=== PATIENT | female | born 1990 | race Caucasian/White ===

== ENCOUNTER 2018-05-12 03:18 | Inpatient (IN) ==
[2018-05-12] MEDS ORDERED: Sod Chloride 0.9% Inj 1,000 ML IV.SIG ONE (03:24)
--- NOTE | 2018-05-12 03:29 | ED ---
HPI General Chief complaint: Medical Clearance Stated complaint: vomiting/diabetic Time Seen by Provider: 05/12/18 03:24 Source: patient Mode of arrival: ambulatory Limitations: no limitations History of Present Illness HPI Narrative: 27-year-old female patient with type 1 diabetes with an insulin pump, gastroparesis, presents to the ER today for nausea and vomiting that started tonight. She is retching in the ER. She denies any fevers, diarrhea, or other issues. She states that it feels like her previous episodes of gastroparesis. She also thought that her blood sugars may have been elevated. Related Data Allergies Allergy/AdvReac Type Severity Reaction Status Date / Time No Known Allergies Allergy Verified 05/12/18 03:19 Review of Systems ROS: all other systems reviewed are negative PMFSH History History Provided By: Patient Medical History Medical History Diabetes (Acute) Gastroparesis (Acute) Social History Social History Substance History: Active Abuse Second Hand Smoke Exposure: Yes Smoking Status: Current every day smoker Tobacco Type: Cigarettes How Often Do You Have a Drink Containing Alcohol: Never Recent Travel in [facility] within the Last 8 Weeks: No Recent Out of Country Travel within the Last 8 Weeks: No Exam Narrative Exam Narrative: GENERAL: Well-developed young female patient currently in moderate distress. Awake and oriented x3. SKIN: Focused skin assessment warm/dry. HEAD: Atraumatic. Normocephalic. EYES: Pupils equal and round. No scleral icterus. No injection or drainage. ENT: No nasal bleeding or discharge. Mucous membranes pink and moist. NECK: Trachea midline. No JVD. CARDIOVASCULAR: Regular rate and rhythm. No murmur appreciated. RESPIRATORY: No accessory muscle use. Clear to auscultation. Breath sounds equal bilaterally. GASTROINTESTINAL: Abdomen soft, epigastric tenderness without guarding rebound, nondistended. Hepatic and splenic margins not palpable. MUSCULOSKELETAL: No obvious deformities. No clubbing. No cyanosis. No edema. NEUROLOGICAL: Awake and alert. No obvious cranial nerve deficits. Motor grossly within normal limits. Normal speech. PSYCHIATRIC: Appropriate mood and affect; insight and judgment normal. Course Initial Documented Vital Signs Temperature 97.9 F 05/12/18 03:23 Pulse Rate 117 H 05/12/18 03:23 Respiratory Rate 22 05/12/18 03:23 Blood Pressure 147/104 H 10/26/18 03:23 Pulse Oximetry 100 05/12/18 03:23 Last Documented Vital Signs Temperature 97.9 F 05/12/18 03:23 Pulse Rate 102 H 05/12/18 03:49 Respiratory Rate 20 05/12/18 03:49 Blood Pressure 149/99 H 05/12/18 03:49 Pulse Oximetry 96 05/12/18 03:49 Medical Decision Making MDM Narrative Medical decision making narrative: Lab work shows very elevated glucose levels and ketones are elevated as well. There is suspicion of a DKA. IV fluids, insulin was ordered for the patient. And at this point, case was discussed with Dr. Buck of critical care medicine for admission for further treatment. Aggregate critical care time was 35 minutes. Time to perform other separately billable procedures was not included in the critical care time. My time did not include minutes spent treating any other patients simultaneously or on activities that did not directly contribute to the patient's treatment. The services I provided to this patient were to treat and/or prevent clinically significant deterioration that could result in: Worsening DKA, dehydration, electrolyte abnormalities, dysrhythmias, I provided critical care services requiring my management, as noted below: Chart data review, documentation time, medication orders and management, vital sign assessments/reviewing monitor data, ordering and reviewing lab tests, ordering and interpreting/reviewing x-rays and diagnostic studies, care of the patient and discussion of the patient with the admitting physicians. Medical Screen Exam Complete: Yes Emergency Medical Condition: Yes Differential Diagnosis Differential Diagnosis: Gastroparesis versus gastroenteritis versus obstruction versus dehydration versus electrolyte abnormalities versus DKA Lab Data Lab results reviewed: Yes I reviewed the patient's lab results. Result diagrams: 05/12/18 03:35 05/12/18 03:35 POC Results POC Urine Results Negative Lab Results 05/12/18 05/12/18 05/12/18 Range/Units 03:24 03:35 03:35 WBC 15.1 H (4.0-11.0) th/mm3 RBC 4.30 (4.00-5.30) mil/mm3 Hgb 12.7 (11.6-15.3) gm/dL Hct 39.1 (35.0-46.0) % MCV 90.9 (80.0-100.0) fL MCH 29.6 (27.0-34.0) pg MCHC 32.6 (32.0-36.0) % RDW 12.9 (11.6-17.2) % Plt Count 365 (150-450) th/mm3 MPV 8.6 (7.0-11.0) fL Neut % (Auto) 83.5 H (16.0-70.0) % Lymph % (Auto) 11.4 (9.0-44.0) % Fa[place]ner % (Auto) 3.6 (0.0-8.0) % Eos % (Auto) 0.8 (0.0-4.0) % Baso % (Auto) 0.7 (0.0-2.0) % Neut # (Auto) 12.6 H (1.8-7.7) th/mm3 Lymph # (Auto) 1.7 (1.0-4.8) th/mm3 Fa[place]ner # (Auto) 0.5 (0.0-0.9) th/mm3 Eos # (Auto) 0.1 (0.0-0.4) th/mm3 Baso # (Auto) 0.1 (0.0-0.2) th/mm3 WBC Differential . Differential Comment Auto diff final Sodium 131 L (136-145) meq/L Potassium 4.3 (3.5-5.1) meq/L Chloride 91 L (98-107) meq/L Carbon Dioxide 19.8 L (21.0-32.0) meq/L Anion Gap 20 H (5-15) meq/L BUN 35 H (7-18) mg/dL Creatinine 1.22 H (0.50-1.00) mg/dL Estimated GFR 52 L (>89) mL/min POC Glucose Greater than 600 H* (68-110) mg/dl Random Glucose 785 H* (74-106) mg/dL Calcium 10.2 H (8.5-10.1) mg/dL Magnesium 2.4 (1.5-2.5) mg/dL Total Bilirubin 0.6 (0.2-1.0) mg/dL AST 35 (15-37) U/L ALT 62 H (10-53) U/L Alkaline Phosphatase 169 H (45-117) U/L Total Protein 8.6 H (6.4-8.2) g/dL Albumin 4.2 (3.4-5.0) g/dL Lipase 352 (73-393) U/L Beta-Hydroxybutyric Acd (0.00-0.39) mmol/L Urine Color (Yellw/Straw) Urine Clarity (Clear) Urine pH (5.0-8.5) Ur Specific [place] (1.002-1.035) Urine Protein (Neg-Trace) mg/dL Urine Glucose (UA) (Negative) mg/dL Urine Ketones (Negative) mg/dL Urine Occult Blood (Negative) Urine Nitrate (Negative) Urine Bilirubin (Negative) Urine Urobilinogen (Less than 2) mg/dL Ur Leukocyte Esterase (Negative) Urine RBC (0-3) /hpf Urine WBC (0-5) /hpf Ur Squamous Epith Cells (0-5) /hpf Micro UA Comment Ur Microscopic Review Urine Culture Comments 05/12/18 05/12/18 Range/Units 03:35 04:26 WBC (4.0-11.0) th/mm3 RBC (4.00-5.30) mil/mm3 Hgb (11.6-15.3) gm/dL Hct (35.0-46.0) % MCV (80.0-100.0) fL MCH (27.0-34.0) pg MCHC (32.0-36.0) % RDW (11.6-17.2) % Plt Count (150-450) th/mm3 MPV (7.0-11.0) fL Neut % (Auto) (16.0-70.0) % Lymph % (Auto) (9.0-44.0) % Faulkner % (Auto) (0.0-8.0) % Eos % (Auto) (0.0-4.0) % Baso % (Auto) (0.0-2.0) % Neut # (Auto) (1.8-7.7) th/mm3 Lymph # (Auto) (1.0-4.8) th/mm3 [place]ner # (Auto) (0.0-0.9) th/mm3 Eos # (Auto) (0.0-0.4) th/mm3 Baso # (Auto) (0.0-0.2) th/mm3 WBC Differential Differential Comment Sodium (136-145) meq/L Potassium (3.5-5.1) meq/L Chloride (98-107) meq/L Carbon Dioxide (21.0-32.0) meq/L Anion Gap (5-15) meq/L BUN (7-18) mg/dL Creatinine (0.50-1.00) mg/dL Estimated GFR (>89) mL/min POC Glucose (68-110) mg/dl Random Glucose (74-106) mg/dL Calcium (8.5-10.1) mg/dL Magnesium (1.5-2.5) mg/dL Total Bilirubin (0.2-1.0) mg/dL AST (15-37) U/L ALT (10-53) U/L Alkaline Phosphatase (45-117) U/L Total Protein (6.4-8.2) g/dL Albumin (3.4-5.0) g/dL Lipase (73-393) U/L Beta-Hydroxybutyric Acd 6.32 H (0.00-0.39) mmol/L Urine Color Straw (Yellw/Straw) Urine Clarity Clear (Clear) Urine pH 5.0 (5.0-8.5) Ur Specific [place] 1.025 (1.002-1.035) Urine Protein 30 H (Neg-Trace) mg/dL Urine Glucose (UA) 500 or greater (Negative) mg/dL Urine Ketones 80 or greater H (Negative) mg/dL Urine Occult Blood Moderate H (Negative) Urine Nitrate Negative (Negative) Urine Bilirubin Negative (Negative) Urine Urobilinogen Less than 2 (Less than 2) mg/dL Ur Leukocyte Esterase Negative (Negative) Urine RBC 4 H (0-3) /hpf Urine WBC 1 (0-5) /hpf Ur Squamous Epith Cells <1 (0-5) /hpf Micro UA Comment Culture not ind Ur Microscopic Review Not Reportable Urine Culture Comments Culture not ind Discharge Plan Discharge Disposition Patient Disposition: 30 Still Patient Discharge Condition Condition: Critical Discharge Details Anticipated Discharge Date: 05/12/18 Diagnosis: DKA, type 1 Physicians Team ED Provider: Josefa Solis Interventions Interventions: Vital Signs Last Done: 05/12/18 03:49 Status ED Status: With Doctor
[2018-05-12] MEDS ORDERED: Sod Chloride 0.9% Inj 1,000 ML IV.SIG SCH ×2 (03:45→05:45)
[2018-05-12 03:50] LABS: Baso # (Auto) 0.1 th/mm3 (0.0-0.2); Baso % (Auto) 0.7 % (0.0-2.0); Eos # (Auto) 0.1 th/mm3 (0.0-0.4); Eos % (Auto) 0.8 % (0.0-4.0); Hematocrit 39.1 % (35.0-46.0); Hemoglobin 12.7 gm/dL (11.6-15.3); Lymph # (Auto) 1.7 th/mm3 (1.0-4.8); Lymph % (Auto) 11.4 % (9.0-44.0); Mean Corpuscular HGB Conc 32.6 % (32.0-36.0); Mean Corpuscular Hemoglobin 29.6 pg (27.0-34.0); Mean Corpuscular Volume 90.9 fL (80.0-100.0); Mean Platelet Volume 8.6 fL (7.0-11.0); Mono # (Auto) 0.5 th/mm3 (0.0-0.9); Mono % (Auto) 3.6 % (0.0-8.0); Neut # (Auto) 12.6 th/mm3 (1.8-7.7); Neut % (Auto) 83.5 % (16.0-70.0); Platelet Count 365 th/mm3 (150-450); Red Cell Distribution Width 12.9 % (11.6-17.2); White Blood Count 15.1 th/mm3 (4.0-11.0)
[2018-05-12 04:16] LABS: Alanine Aminotransferase 62 U/L (10-53); Albumin 4.2 g/dL (3.4-5.0); Anion Gap 20 meq/L (5-15); Aspartate Aminotransferase 35 U/L (15-37); Blood Urea Nitrogen 35 mg/dL (7-18); Calcium 10.2 mg/dL (8.5-10.1); Carbon Dioxide 19.8 meq/L (21.0-32.0); Chloride 91 meq/L (98-107); Glomerular Filtration Rate 52 mL/min (>89); Lipase 352 U/L (73-393); Magnesium 2.4 mg/dL (1.5-2.5); Potassium 4.3 meq/L (3.5-5.1); Sodium 131 meq/L (136-145)
[2018-05-12 04:20] LABS: Total Protein 8.6 g/dL (6.4-8.2)
[2018-05-12 04:21] LABS: Alkaline Phosphatase 169 U/L (45-117)
[2018-05-12 04:26] LABS: Glucose,Random 785 mg/dL (74-106)
[2018-05-12] MEDS ORDERED: Potassium Chlor 20 mEq Premix 20 MEQ/100 ML PIGGYBACK IV.SIG PRN ×3 (04:32)
[2018-05-12] MEDS ORDERED: Potassium Chlor 40 mEq Premix 40 MEQ/100 ML PIGGYBACK IV.SIG PRN ×2 (04:32)
[2018-05-12] MEDS ORDERED: Sodium Phosphate Inj 15 MMOL in Sodium Chlor 0.9% Inj 100 ML IV.SIG PRN (04:32)
[2018-05-12 04:42] LABS: Bilirubin,Urine Negative (Negative); Clarity,Urine Clear (Clear); Color,Urine Straw (Yellw/Straw); Glucose,Urine (UA) 500 or Greater mg/dL (Negative); Leukocyte Esterase,Urine Negative (Negative); Nitrite,Urine Negative (Negative); Specific Gravity,Urine 1.025 (1.002-1.035); Squamous Epithelial Cell,Urine <1 /hpf (0-5)
--- NOTE | 2018-05-12 04:54 | CT ---
EXAM DATE: 05/12/2018 4:45 AM EDT AGE/SEX: 27 years / Female INDICATIONS: Abdominal pain and vomiting. CLINICAL DATA: This is the patient's initial encounter. Patient reports that signs and symptoms have been present for 1 day and indicates a pain score of 10/10. MEDICAL/SURGICAL HISTORY: Diabetes. Gastroparesis. None. ORAL CONTRAST: No oral contrast ingested. RADIATION DOSE: 6.64 CTDI (mGy) COMPARISON: No prior exams available for comparison. TECHNIQUE: Multiple contiguous axial images were obtained through the abdomen and pelvis following b olus infusion of 75 ml Omnipaque 350 (iohexol) nonionic water-soluble contrast as a single exam dos e. No oral contrast ingested. Using automated exposure control and adjustment of the mA and/or kV ac cording to patient size, radiation dose was kept as low as reasonably achievable to obtain optimal di agnostic quality images. DICOM format image data is available electronically for review and comparis on. FINDINGS: Lower Lungs: The visualized lower lungs are clear. Liver: The liver has a homogeneous density without space-occupying lesion. There is no dilation of th e biliary tree. No calcified gallstones. Spleen: Homogeneous density without enlargement. Pancreas: Unremarkable without mass or calcification. Kidneys: Normal in size and shape. No evidence of mass or hydronephrosis. Adrenal Glands: Unremarkable. Aorta: The aorta and proximal iliac vessels are grossly unremarkable without aneurysmal dilation. Bowel/Mesentery: No dilated loops of small or large bowel. A mild amount of free fluid in the depend ent pelvis. Abdominal Wall: Intact. Retroperitoneum: No evidence of adenopathy in the retrocrural, para-aortic, or deep pelvic regions. Bladder: Contours are smooth. Reproductive Organs: No abnormal masses or calcifications seen. Inguinal: The inguinal region is unremarkable without evidence of adenopathy. Bony Structures: 3 screws in the left femoral head and neck. Old fracture of the left inferior pubic ramus with nonbony fusion. CONCLUSION: 1. No dilated loops of small or large bowel. 2. Mild amount of free fluid in the dependent pelvis. Electronically signed by: Joe Wu MD 05/12/2018 4:52 AM EDT
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
[2018-05-12] MEDS: Insulin Regular (For Infusion) 100 UNIT in Sodium Chlor 0.9% Inj 99 ML IV.CONT PRN ×2 (05:29→21:58)
[2018-05-12] MEDS: Sod Chloride 0.9% Inj 1,000 ML IV.CONT SCH ×2 (05:29→09:41)
[2018-05-12] MEDS: Dextrose 5%/NaCl 0.9% Inj 1,000 ML IV.CONT SCH ×4 (06:00→21:56)
[2018-05-12] MEDS: Heparin - SQ 10,000 UNITS/ML Vial SQ SCH ×2 (08:12→20:34)
[2018-05-12 10:57] LABS: Calcium 8.8 mg/dL (8.5-10.1); Carbon Dioxide 19.9 meq/L (21.0-32.0)
[2018-05-12] MEDS ORDERED: Morphine Sulfate Inj 2 MG/ML Vial ONE (13:17)
[2018-05-12] MEDS ORDERED: MORPHINE SULFATE IV.PUSH ONE (13:30)
[2018-05-12] MEDS: Potassium Chlor 20 mEq Premix 20 MEQ/100 ML PIGGYBACK IV.SIG PRN ×3 (13:40→23:11)
[2018-05-12 16:27] LABS: Calcium 8.3 mg/dL (8.5-10.1); Carbon Dioxide 24.8 meq/L (21.0-32.0); Phosphorus 1.7 mg/dL (2.5-4.9); Potassium 3.9 meq/L (3.5-5.1)
--- NOTE | 2018-05-12 17:46 | P.CONGI ---
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 Urine pH Ur Specific [place] Urine Protein Urine Glucose (UA) Urine Ketones Urine Occult Blood Urine Nitrate Urine Bilirubin Urine Urobilinogen Ur Leukocyte Esterase Urine RBC Urine WBC Ur Squamous Epith Cells Micro UA Comment Ur Microscopic Review Urine Culture Comments Nasal Screen MRSA (PCR) 05/12/18 05/12/18 05/12/18 10:05 10:11 11:05 WBC RBC Hgb Hct MCV MCH MCHC RDW Plt Count MPV Neut % (Auto) Lymph % (Auto) [place] % (Auto) Eos % (Auto) Baso % (Auto) Neut # (Auto) Lymph # (Auto) [place] # (Auto) Eos # (Auto) Baso # (Auto) WBC Differential Differential Comment Sodium 144 D Potassium 4.0 Chloride 112 H D Carbon Dioxide 19.9 L Anion Gap 12 BUN 27 H Creatinine 0.96 Estimated GFR 69 L POC Glucose 204 H 150 H Random Glucose 205 H D Calcium 8.8 D Phosphorus Magnesium Total Bilirubin AST ALT Alkaline Phosphatase Total Protein Albumin Lipase Beta-Hydroxybutyric Acd Urine Color Urine Clarity Urine pH Ur Specific [place] Urine Protein Urine Glucose (UA) Urine Ketones Urine Occult Blood Urine Nitrate Urine Bilirubin Urine Urobilinogen Ur Leukocyte Esterase Urine RBC Urine WBC Ur Squamous Epith Cells Micro UA Comment Ur Microscopic Review Urine Culture Comments Nasal Screen MRSA (PCR) 05/12/18 05/12/18 05/12/18 11:33 12:32 13:26 WBC RBC Hgb Hct MCV MCH MCHC RDW Plt Count MPV Neut % (Auto) Lymph % (Auto) [place] % (Auto) Eos % (Auto) Baso % (Auto) Neut # (Auto) Lymph # (Auto) [place] # (Auto) Eos # (Auto) Baso # (Auto) WBC Differential Differential Comment Sodium Potassium Chloride Carbon Dioxide Anion Gap BUN Creatinine Estimated GFR POC Glucose 164 H 252 H 249 H Random Glucose Calcium Phosphorus Magnesium Total Bilirubin AST ALT Alkaline Phosphatase Total Protein Albumin Lipase Beta-Hydroxybutyric Acd Urine Color Urine Clarity Urine pH Ur Specific [place] Urine Protein Urine Glucose (UA) Urine Ketones Urine Occult Blood Urine Nitrate Urine Bilirubin Urine Urobilinogen Ur Leukocyte Esterase Urine RBC Urine WBC Ur Squamous Epith Cells Micro UA Comment Ur Microscopic Review Urine Culture Comments Nasal Screen MRSA (PCR) 10/26/18 10/26/18 10/26/18 14:27 15:44 15:45 WBC RBC Hgb Hct MCV MCH MCHC RDW Plt Count MPV Neut % (Auto) Lymph % (Auto) [place] % (Auto) Eos % (Auto) Baso % (Auto) Neut # (Auto) Lymph # (Auto) [place] # (Auto) Eos # (Auto) Baso # (Auto) WBC Differential Differential Comment Sodium 146 H Potassium 3.9 Chloride 113 H Carbon Dioxide 24.8 Anion Gap 8 BUN 27 H Creatinine 0.84 Estimated GFR 81 L POC Glucose 249 H 215 H Random Glucose 236 H Calcium 8.3 L Phosphorus 1.7 L D Magnesium Total Bilirubin AST ALT Alkaline Phosphatase Total Protein Albumin Lipase Beta-Hydroxybutyric Acd Urine Color Urine Clarity Urine pH Ur Specific [place] Urine Protein Urine Glucose (UA) Urine Ketones Urine Occult Blood Urine Nitrate Urine Bilirubin Urine Urobilinogen Ur Leukocyte Esterase Urine RBC Urine WBC Ur Squamous Epith Cells Micro UA Comment Ur Microscopic Review Urine Culture Comments Nasal Screen MRSA (PCR) 05/12/18 05/12/18 05/12/18 16:47 18:09 18:43 WBC RBC Hgb Hct MCV MCH MCHC RDW Plt Count MPV Neut % (Auto) Lymph % (Auto) [place] % (Auto) Eos % (Auto) Baso % (Auto) Neut # (Auto) Lymph # (Auto) [place] # (Auto) Eos # (Auto) Baso # (Auto) WBC Differential Differential Comment Sodium Potassium Chloride Carbon Dioxide Anion Gap BUN Creatinine Estimated GFR POC Glucose 193 H 207 H 203 H Random Glucose Calcium Phosphorus Magnesium Total Bilirubin AST ALT Alkaline Phosphatase Total Protein Albumin Lipase Beta-Hydroxybutyric Acd Urine Color Urine Clarity Urine pH Ur Specific [place] Urine Protein Urine Glucose (UA) Urine Ketones Urine Occult Blood Urine Nitrate Urine Bilirubin Urine Urobilinogen Ur Leukocyte Esterase Urine RBC Urine WBC Ur Squamous Epith Cells Micro UA Comment Ur Microscopic Review Urine Culture Comments Nasal Screen MRSA (PCR) - Imaging Impressions Abdomen/Pelvis CT 05/12/18 03:54 CONCLUSION: 1. No dilated loops of small or large bowel. 2. Mild amount of free fluid in the dependent pelvis. <Pankaj Fletcher E - Last Filed: 05/12/18 19:13> Assessment and Plan (1) Nausea and vomiting due to hyperglycemia Status: Acute Code(s): R11.2 - Nausea with vomiting, unspecified; R73.9 - Hyperglycemia, unspecified (2) Gastroparesis Status: Acute Code(s): K31.84 - Gastroparesis - Plan This patient is a 27-year-old female with past medical history significant for type 1 diabetes. Patient currently has an insulin pump and has history of gastroparesis. She reports onset of severe nausea and vomiting at midnight last night. At home she checked her blood glucose level and found it to be high , at that time she proceeded to [facility] emergency room. Patient was found to be in DKA with a glucose of 785. She reports having abdominal cramping and pain. Denies any diarrhea or constipation states bowel movements are regular soft brown stools daily. Reports nausea nausea and vomiting consisting of clear emesis. Patient denies any fever or chills. Patient states that she has had a history of gastroparesis for about 6 years. Patient denies being on any prokinetics and states that gastroparesis has been controlled for the last 2 years without prescription medications. Last gastric emptying study was done "years ago". Last EGD per patient recollection was done and estimated 2 years ago in [place]-where patient lives. Patient denies ever having had a colonoscopy. She denies tobacco use or use of alcohol products. Nausea vomiting-likely due to to DKA Patient reporting nausea and vomiting onset midnight. Patient reports emesis clear. Patient found to be in DKA with glucose of 785 on arrival to ER. Zofran 4 mg IV every 6 hours as needed nausea. CT abdomen and pelvis unremarkable without noted dilated loops of bowel. Gastroparesis-likely due to diabetes mellitus Patient reporting history of gastroparesis for 6 years. States controlled over the last 2 years and denies being on any prescription medications for same. Reglan 5 mg IV every 8 hours. May need additional gastric emptying study at some point. Plan -Clear liquid diet -Reglan IV as prokinetic -Zofran IV as antiemetic -Continue IV hydration -Continue DKA protocol -Continue PPI -Supportive care -Further recommendations to follow This patient has been seen by myself and Dr. Fletcher and this note is written on his behalf - Attending Attestation Dr. Fletcher <Aye Ramos - Last Filed: 05/12/18 17:32> (1) Nausea and vomiting due to hyperglycemia Status: Acute Code(s): R11.2 - Nausea with vomiting, unspecified; R73.9 - Hyperglycemia, unspecified (2) Gastroparesis Status: Acute Code(s): K31.84 - Gastroparesis - Plan Patient seen and examined Agree with above H&P Monitor labs Continue with current supportive care We will also proceed with an upper endoscopy tomorrow <Pankaj Fletcher - Last Filed: 05/12/18 19:13>
[2018-05-12 22:27] LABS: Calcium 7.6 mg/dL (8.5-10.1); Carbon Dioxide 25.5 meq/L (21.0-32.0); Phosphorus 1.7 mg/dL (2.5-4.9); Potassium 4.2 meq/L (3.5-5.1)
[2018-05-13] MEDS: Dextrose 5%/NaCl 0.9% Inj 1,000 ML IV.CONT SCH ×3 (03:10→11:08)
[2018-05-13 04:10] LABS: Baso # (Auto) 0.1 th/mm3 (0.0-0.2); Baso % (Auto) 0.3 % (0.0-2.0); Hematocrit 29.8 % (35.0-46.0); Hemoglobin 10.3 gm/dL (11.6-15.3); Lymph # (Auto) 2.2 th/mm3 (1.0-4.8); Lymph % (Auto) 11.4 % (9.0-44.0); Mean Corpuscular HGB Conc 34.6 % (32.0-36.0); Mean Corpuscular Hemoglobin 30.5 pg (27.0-34.0); Mean Corpuscular Volume 88.2 fL (80.0-100.0); Mean Platelet Volume 8.3 fL (7.0-11.0); Mono # (Auto) 1.8 th/mm3 (0.0-0.9); Mono % (Auto) 9.4 % (0.0-8.0); Neut # (Auto) 15.4 th/mm3 (1.8-7.7); Neut % (Auto) 78.9 % (16.0-70.0); Platelet Count 328 th/mm3 (150-450); Red Blood Count 3.38 mil/mm3 (4.00-5.30); Red Cell Distribution Width 12.9 % (11.6-17.2); White Blood Count 19.5 th/mm3 (4.0-11.0)
--- NOTE | 2018-05-13 04:32 | XR ---
EXAM DATE: 05/13/2018 4:01 AM EDT AGE/SEX: 27 years / Female INDICATIONS: Shortness of breath, possible pulmonary disease. CLINICAL DATA: This is the patient's initial encounter. Patient reports that signs and symptoms have been present for 2 days and indicates a pain score of 0/10. MEDICAL/SURGICAL HISTORY: Diabetes. Gastroparesis. None. COMPARISON: No prior exams available for comparison. FINDINGS: A single AP view of the chest demonstrates the lungs to be symmetrically aerated without evidence of mass, infiltrate or effusion. The cardiomediastinal contours are unremarkable. Healed fracture of th e posterior lateral right fifth and sixth ribs. CONCLUSION: The lungs are clear. Electronically signed by: Joe Wu MD 05/13/2018 4:31 AM EDT
[2018-05-13 04:41] LABS: Alanine Aminotransferase 33 U/L (10-53); Alkaline Phosphatase 90 U/L (45-117); Anion Gap 10 meq/L (5-15); Aspartate Aminotransferase 17 U/L (15-37); Beta Hydroxybutyric Acid 1.11 mmol/L (0.00-0.39); Blood Urea Nitrogen 24 mg/dL (7-18); Calcium 7.8 mg/dL (8.5-10.1); Carbon Dioxide 23.1 meq/L (21.0-32.0); Chloride 116 meq/L (98-107); Glomerular Filtration Rate Greater Than 89 mL/min (>89); Glucose,Random 157 mg/dL (74-106); Magnesium 1.8 mg/dL (1.5-2.5); Phosphorus 1.9 mg/dL (2.5-4.9); Potassium 3.4 meq/L (3.5-5.1); Sodium 149 meq/L (136-145); Total Protein 6.6 g/dL (6.4-8.2)
[2018-05-13] MEDS: Potassium Chlor 20 mEq Premix 20 MEQ/100 ML PIGGYBACK IV.SIG PRN ×4 (05:54→13:42)
[2018-05-13] MEDS: Heparin - SQ 10,000 UNITS/ML Vial SQ SCH ×2 (08:41→20:45)
[2018-05-13] MEDS ORDERED: Lidocaine PF 1% Inj 5 ML Syringe OTHER ONE (09:50)
[2018-05-13] MEDS ORDERED: Succinylcholine Inj 100 MG/5 ML Syringe IV.PUSH ONE (09:50)
--- NOTE | 2018-05-13 10:16 | GIPROC ---
[facility] [address] [facility]. [facility], [address] EGD PROCEDURE REPORT EXAM DATE: 05/13/2018 PATIENT NAME: Wesley Dykes MR #: [id number] BIRTHDATE: 1990 ATTENDING: Baljinder White MD ORDER #: [id number] SHEET CUTTER: Sandro Gonzalez and Renetta Fried STATUS: inpatient INDICATIONS: The patient is a 27 yr old female here for an EGD due to epigastric abdominal pain, nausea, and vomiting PROCEDURE PERFORMED: EGD w/ biopsy EGD, diagnostic MEDICATIONS: None and Per Anesthesia. TOPICAL ANESTHETIC: none CONSENT: The patient understands the risks and benefits of the procedure and understands that these risks include, but are not limited to: sedation, allergic reaction, infection, perforation and/or bleeding. Alternative means of evaluation and treatment include, among others: physical exam, x-rays, and/or surgical intervention. The patient elects to proceed with this endoscopic procedure. medical equipment was checked for proper function. Hand hygiene and appropriate measures for infection prevention was taken. After the risks, benefits and alternatives of the procedure were thoroughly explained, Informed consent was verified, confirmed and timeout was successfully executed by the treatment team. The patient was anesthetized with topical anesthesia and the Pentax EG-[id number] endoscope was introduced through the mouth and advanced to the second portion of the duodenum. Retroflexed views revealed no abnormalities The gastroscope was then slowly withdrawn and removed. ESOPHAGUS: There was [place] Class D esophagitis noted. Multiple biopsies were performed. STOMACH: There was a moderate amount of residual food seen in the gastric body and gastric fundus. Based on this, I suspect the patient has some level of gastroparesis. There was mild antral gastropathy noted. Cold forcep biopsies were taken at the antrum and angularis. DUODENUM: The duodenal mucosa appeared normal in the entire duodenum. Cold forceps biopsies were taken in the bulb and second portion. ADVERSE EVENTS: There were no complications. IMPRESSIONS: 1. There was [place] Class D esophagitis noted; multiple biopsies were performed 2. Food residue in the gastric body and gastric fundus 3. There was mild antral gastropathy noted [T2] 4. Normal duodenal mucosa in the entire duodenum 5. Retroflexed views revealed no abnormalities RECOMMENDATIONS: Await biopsy results. Biopsy results will not be ready for 7-10 days. If you don't hear from us in two weeks, call our office for biopsy results. PATIENT CONDITION: stable DISPOSITION: Inpatient REPEAT EXAM: Return as needed for EGD Baljinder White MD eSigned: Baljinder White MD 05/13/2018 10:16 AM cc: PATIENT NAME: Wesley Dykes MR#: [id number]
[2018-05-13] MEDS ORDERED: fentaNYL Citrate Inj 100 MCG/2 ML Ampul ONE (10:28)
[2018-05-13] MEDS ORDERED: Sodium Chloride 0.9% 2 ML Flush PRN IV.FLUSH (13:06)
[2018-05-13] MEDS: Sod Chloride 0.9% Inj 1,000 ML IV.CONT SCH (13:27)
[2018-05-13] MEDS ORDERED: Insulin Detemir Inj 1,000 UNIT/10 ML Vial SQ ONE (14:30)
--- NOTE | 2018-05-13 14:34 | P.PNIM ---
Subjective Interval history: Nausea still remains today. Antiemetics adjusted. Patient had a EGD which showed gastritis and esophagitis. These are consistent with her prior history of gastroparesis. No ulcers, tumors, or bleeding. Physical Exam Vital signs: Vital Signs 05/12/18 15:00 05/12/18 15:01 05/12/18 16:00 Temperature 99.2 F Pulse Rate 107 H 106 H 107 H Respiratory Rate Blood Pressure 162/71 H Pulse Oximetry 98 99 98 05/12/18 16:01 05/12/18 16:24 05/12/18 17:00 Temperature Pulse Rate 110 H 114 H 104 H Respiratory Rate Blood Pressure 172/103 H 149/80 H 154/89 H Pulse Oximetry 100 98 100 05/12/18 18:00 05/12/18 20:00 05/13/18 00:00 Temperature 98.4 F 98.6 F Pulse Rate 96 H 109 H 84 Respiratory Rate 22 18 Blood Pressure 102/59 L 143/93 H 97/56 L Pulse Oximetry 98 100 99 05/13/18 04:00 05/13/18 08:00 05/13/18 09:00 Temperature 97.9 F 99.2 F Pulse Rate 100 H 105 H 110 H Respiratory Rate 22 13 31 H Blood Pressure 159/81 H 154/82 H 149/75 H Pulse Oximetry 97 97 98 05/13/18 10:17 05/13/18 10:30 05/13/18 10:45 Temperature 98.5 F 97.6 F Pulse Rate 104 H 100 H 102 H Respiratory Rate 16 16 16 Blood Pressure 112/73 121/76 121/78 Pulse Oximetry 99 100 05/13/18 12:00 05/13/18 13:00 05/13/18 13:19 Temperature 99.0 F Pulse Rate 101 H 106 H Respiratory Rate 24 29 H 15 Blood Pressure 142/78 H 138/101 H Pulse Oximetry 99 99 05/13/18 14:00 Temperature Pulse Rate 104 H Respiratory Rate 19 Blood Pressure 131/72 Pulse Oximetry 99 Intake & Output 05/12/18 05/13/18 05/13/18 18:59 06:59 18:59 Intake Total 3400 / 3400 3380 / 3380 2350 / 2350 Output Total 600 / 600 900 / 900 Balance 2800 / 2800 2480 / 2480 2350 / 2350 Weight 55.1 kg 54 kg Intake: IV 3200 / 3200 3300 / 3300 2300 / 2300 D5W/Normal Saline Inj 1,000 ML 1000 / 1000 3000 / 3000 1900 / 1900 @ 200 mls/hr IV.CONT .Q5H PHILIP Rx#:[id number] NovoLIN R (IV Infusion) 100 100 / 100 UNIT In NS Inj 99 ML @ 5 UNITS/ HR 5 mls/hr IV.CONT TITRATE PRN Rx#:[id number] NS Inj 1,000 ML @ 250 mls/hr IV 1999 / 1999 .CONT .Q4H PHILIP Rx#:[id number] Ofirmev Inj 1,000 mg In 100 ml 100 / 100 100 / 100 @ 400 mls/hr IV.SIG Q6H PRN Rx# :[id number] KCl 20 mEq Premix Inj 20 meq In 100 / 100 200 / 200 300 / 300 100 ml @ 50 mls/hr IV.SIG Q2H PRN Rx#:[id number] Oral 80 / 80 Oral Supplement 200 / 200 Anesthesia Amount 50 / 50 Output: Urine 750 / 750 Emesis 600 / 600 150 / 150 Other: # Voids 3 Date of Last Bowel Movement 05/12/18 05/12/18 Weight On Admission 55.1 kg Narrative: GENERAL: NAD, A&Ox3 HEAD: Normocephalic. NECK: Supple, trachea midline. No lymphadenopathy. EYES: No scleral icterus. No injection or drainage. CARDIOVASCULAR: Regular rate and rhythm without murmurs, gallops, or rubs. RESPIRATORY: Breath sounds equal bilaterally. No accessory muscle use. GASTROINTESTINAL: Abdomen soft, non-tender, nondistended. MUSCULOSKELETAL: No cyanosis, or edema. SKIN: Warm and dry. NEURO: No focal neurological deficits. Results - Labs CBC & Chem 7: 05/13/18 03:34 05/13/18 03:25 Laboratory Results - last 24 hr 05/12/18 05/12/18 05/12/18 14:27 15:44 15:45 WBC RBC Hgb Hct MCV MCH MCHC RDW Plt Count MPV Neut % (Auto) Lymph % (Auto) [place] % (Auto) Eos % (Auto) Baso % (Auto) Neut # (Auto) Lymph # (Auto) [place] # (Auto) Eos # (Auto) Baso # (Auto) WBC Differential Differential Comment Sodium 146 H Potassium 3.9 Chloride 113 H Carbon Dioxide 24.8 Anion Gap 8 BUN 27 H Creatinine 0.84 Estimated GFR 81 L POC Glucose 249 H 215 H Random Glucose 236 H Calcium 8.3 L Phosphorus 1.7 L D Magnesium Total Bilirubin AST ALT Alkaline Phosphatase Total Protein Albumin Beta-Hydroxybutyric Acd 05/12/18 05/12/18 05/12/18 16:47 18:09 18:43 WBC RBC Hgb Hct MCV MCH MCHC RDW Plt Count MPV Neut % (Auto) Lymph % (Auto) [place] % (Auto) Eos % (Auto) Baso % (Auto) Neut # (Auto) Lymph # (Auto) [place] # (Auto) Eos # (Auto) Baso # (Auto) WBC Differential Differential Comment Sodium Potassium Chloride Carbon Dioxide Anion Gap BUN Creatinine Estimated GFR POC Glucose 193 H 207 H 203 H Random Glucose Calcium Phosphorus Magnesium Total Bilirubin AST ALT Alkaline Phosphatase Total Protein Albumin Beta-Hydroxybutyric Acd 05/12/18 05/12/18 05/12/18 19:41 20:55 21:24 WBC RBC Hgb Hct MCV MCH MCHC RDW Plt Count MPV Neut % (Auto) Lymph % (Auto) [place] % (Auto) Eos % (Auto) Baso % (Auto) Neut # (Auto) Lymph # (Auto) [place] # (Auto) Eos # (Auto) Baso # (Auto) WBC Differential Differential Comment Sodium 149 H Potassium 4.2 Chloride 116 H Carbon Dioxide 25.5 Anion Gap 8 BUN 26 H Creatinine 0.78 Estimated GFR 88 L POC Glucose 218 H 182 H Random Glucose 236 H Calcium 7.6 L Phosphorus 1.7 L Magnesium Total Bilirubin AST ALT Alkaline Phosphatase Total Protein Albumin Beta-Hydroxybutyric Acd 05/12/18 05/12/18 05/12/18 21:47 22:39 23:42 WBC RBC Hgb Hct MCV MCH MCHC RDW Plt Count MPV Neut % (Auto) Lymph % (Auto) [place] % (Auto) Eos % (Auto) Baso % (Auto) Neut # (Auto) Lymph # (Auto) [place] # (Auto) Eos # (Auto) Baso # (Auto) WBC Differential Differential Comment Sodium Potassium Chloride Carbon Dioxide Anion Gap BUN Creatinine Estimated GFR POC Glucose 175 H 164 H 152 H Random Glucose Calcium Phosphorus Magnesium Total Bilirubin AST ALT Alkaline Phosphatase Total Protein Albumin Beta-Hydroxybutyric Acd 05/13/18 05/13/1805/13/18 00:31 01:40 02:51 WBC RBC Hgb Hct MCV MCH MCHC RDW Plt Count MPV Neut % (Auto) Lymph % (Auto) [place] % (Auto) Eos % (Auto) Baso % (Auto) Neut # (Auto) Lymph # (Auto) [place] # (Auto) Eos # (Auto) Baso # (Auto) WBC Differential Differential Comment Sodium Potassium Chloride Carbon Dioxide Anion Gap BUN Creatinine Estimated GFR POC Glucose 169 H 173 H 147 H Random Glucose Calcium Phosphorus Magnesium Total Bilirubin AST ALT Alkaline Phosphatase Total Protein Albumin Beta-Hydroxybutyric Acd 05/13/18 05/13/18 05/13/18 03:24 03:25 03:34 WBC 19.5 H RBC 3.38 L Hgb 10.3 L D Hct 29.8 L MCV 88.2 MCH 30.5 MCHC 34.6 RDW 12.9 Plt Count 328 MPV 8.3 Neut % (Auto) 78.9 H Lymph % (Auto) 11.4 [place] % (Auto) 9.4 H Eos % (Auto) 0.0 Baso % (Auto) 0.3 Neut # (Auto) 15.4 H Lymph # (Auto) 2.2 [place] # (Auto) 1.8 H Eos # (Auto) 0.0 Baso # (Auto) 0.1 WBC Differential . Differential Comment Auto diff final Sodium 149 H Potassium 3.4 L D Chloride 116 H Carbon Dioxide 23.1 Anion Gap 10 BUN 24 H Creatinine 0.69 Estimated GFR Greater than 89 POC Glucose 157 H Random Glucose 157 H Calcium 7.8 L Phosphorus 1.9 L Magnesium 1.8 D Total Bilirubin 0.3 AST 17 ALT 33 Alkaline Phosphatase 90 Total Protein 6.6 D Albumin 3.0 L D Beta-Hydroxybutyric Acd 1.11 H D 05/13/18 05/13/18 05/13/18 04:43 05:38 06:31 WBC RBC Hgb Hct MCV MCH MCHC RDW Plt Count MPV Neut % (Auto) Lymph % (Auto) [place] % (Auto) Eos % (Auto) Baso % (Auto) Neut # (Auto) Lymph # (Auto) [place] # (Auto) Eos # (Auto) Baso # (Auto) WBC Differential Differential Comment Sodium Potassium Chloride Carbon Dioxide Anion Gap BUN Creatinine Estimated GFR POC Glucose 215 H 249 H 189 H Random Glucose Calcium Phosphorus Magnesium Total Bilirubin AST ALT Alkaline Phosphatase Total Protein Albumin Beta-Hydroxybutyric Acd 05/13/18 05/13/18 05/13/18 07:36 08:40 09:23 WBC RBC Hgb Hct MCV MCH MCHC RDW Plt Count MPV Neut % (Auto) Lymph % (Auto) [place] % (Auto) Eos % (Auto) Baso % (Auto) Neut # (Auto) Lymph # (Auto) [place] # (Auto) Eos # (Auto) Baso # (Auto) WBC Differential Differential Comment Sodium Potassium Chloride Carbon Dioxide Anion Gap BUN Creatinine Estimated GFR POC Glucose 202 H 218 H 286 H Random Glucose Calcium Phosphorus Magnesium Total Bilirubin AST ALT Alkaline Phosphatase Total Protein Albumin Beta-Hydroxybutyric Acd 05/13/18 05/13/18 05/13/18 10:25 12:00 13:03 WBC RBC Hgb Hct MCV MCH MCHC RDW Plt Count MPV Neut % (Auto) Lymph % (Auto) [place] % (Auto) Eos % (Auto) Baso % (Auto) Neut # (Auto) Lymph # (Auto) [place] # (Auto) Eos # (Auto) Baso # (Auto) WBC Differential Differential Comment Sodium Potassium Chloride Carbon Dioxide Anion Gap BUN Creatinine Estimated GFR POC Glucose 240 H 151 H 130 H Random Glucose Calcium Phosphorus Magnesium Total Bilirubin AST ALT Alkaline Phosphatase Total Protein Albumin Beta-Hydroxybutyric Acd 05/13/18 05/13/18 13:34 14:05 WBC RBC Hgb Hct MCV MCH MCHC RDW Plt Count MPV Neut % (Auto) Lymph % (Auto) [place] % (Auto) Eos % (Auto) Baso % (Auto) Neut # (Auto) Lymph # (Auto) [place] # (Auto) Eos # (Auto) Baso # (Auto) WBC Differential Differential Comment Sodium Potassium Chloride Carbon Dioxide Anion Gap BUN Creatinine Estimated GFR POC Glucose 115 H 127 H Random Glucose Calcium Phosphorus Magnesium Total Bilirubin AST ALT Alkaline Phosphatase Total Protein Albumin Beta-Hydroxybutyric Acd Microbiology 05/12/18 04:48 Blood - Peripheral Aerobic Blood Culture - Preliminary No growth in 1 day 05/12/18 04:48 Blood - Peripheral Anaerobic Blood Culture - Preliminary No growth in 1 day 05/12/18 05:01 Blood - Peripheral Aerobic Blood Culture - Preliminary No growth in 1 day 05/12/18 05:01 Blood - Peripheral Anaerobic Blood Culture - Preliminary No growth in 1 day - Imaging Impressions Chest X-Ray 05/13/18 00:00 CONCLUSION: The lungs are clear. Assessment and Plan - Assessment (1) Diabetic ketoacidosis Code(s): E13.10 - Other specified diabetes mellitus with ketoacidosis without coma Status: Acute (2) Gastroparesis Code(s): K31.84 - Gastroparesis Status: Acute - Plan 27-year-old female admitted secondary to symptomatic gastroparesis with DKA DKA This appears to be resolving well We will transition to subcutaneous insulin Stop IV insulin drip Gastroparesis Continue antibiotics Reglan Phenergan IV hydration Acute kidney injury Component of dehydration likely present Continue IV hydration Continue to monitor renal function Leukocytosis Likely reactive next line continue to follow CBC DVT prophylaxis Heparin
[2018-05-13] MEDS ORDERED: Dextrose 50% in Water 50 ML Vial IV.PUSH PRN (16:09)
[2018-05-13] MEDS: Insulin NovoLOG Aspart Correctional Sugar Inj SQ SCH ×2 (18:04→20:46)
[2018-05-13] MEDS: Pantoprazole Inj 40 MG Vial IV.PUSH SCH (20:46)
[2018-05-13] MEDS: Sodium Chloride 0.9% 2 ML Flush BID IV.FLUSH SCH (20:46)
[2018-05-14] MEDS: Sod Chloride 0.9% Inj 1,000 ML IV.CONT SCH ×2 (03:46→17:21)
[2018-05-14 05:38] LABS: Baso % (Auto) 0.2 % (0.0-2.0); Hematocrit 32.4 % (35.0-46.0); Hemoglobin 10.6 gm/dL (11.6-15.3); Lymph # (Auto) 1.2 th/mm3 (1.0-4.8); Lymph % (Auto) 6.4 % (9.0-44.0); Mean Corpuscular HGB Conc 32.8 % (32.0-36.0); Mean Corpuscular Hemoglobin 29.5 pg (27.0-34.0); Mean Platelet Volume 8.3 fL (7.0-11.0); Mono # (Auto) 0.8 th/mm3 (0.0-0.9); Mono % (Auto) 4.1 % (0.0-8.0); Neut # (Auto) 16.8 th/mm3 (1.8-7.7); Neut % (Auto) 89.3 % (16.0-70.0); Platelet Count 324 th/mm3 (150-450); Red Cell Distribution Width 13.4 % (11.6-17.2); White Blood Count 18.9 th/mm3 (4.0-11.0)
[2018-05-14 06:06] LABS: Albumin 3.1 g/dL (3.4-5.0); Anion Gap 12 meq/L (5-15); Aspartate Aminotransferase 26 U/L (15-37); Blood Urea Nitrogen 15 mg/dL (7-18); Calcium 8.3 mg/dL (8.5-10.1); Carbon Dioxide 23.2 meq/L (21.0-32.0); Chloride 109 meq/L (98-107); Glomerular Filtration Rate Greater Than 89 mL/min (>89); Glucose,Random 238 mg/dL (74-106); Magnesium 1.8 mg/dL (1.5-2.5); Potassium 3.3 meq/L (3.5-5.1); Sodium 144 meq/L (136-145)
[2018-05-14 06:07] LABS: Alanine Aminotransferase 36 U/L (10-53)
[2018-05-14 06:10] LABS: Alkaline Phosphatase 95 U/L (45-117); Total Protein 7.1 g/dL (6.4-8.2)
[2018-05-14] MEDS: Insulin NovoLOG Aspart Correctional Sugar Inj SQ SCH ×4 (08:37→21:29)
[2018-05-14] MEDS: Sodium Chloride 0.9% 2 ML Flush BID IV.FLUSH SCH ×2 (08:38→21:30)
[2018-05-14] MEDS: Heparin - SQ 10,000 UNITS/ML Vial SQ SCH ×2 (08:38→21:29)
[2018-05-14] MEDS: Pantoprazole Inj 40 MG Vial IV.PUSH SCH (08:38)
[2018-05-14] MEDS: Potassium Chlor 20 mEq Premix 20 MEQ/100 ML PIGGYBACK IV.SIG PRN ×3 (10:33→12:37)
--- NOTE | 2018-05-14 15:51 | P.PN ---
Subjective Interval history: Follow up for DKA, gastroparesis. Patient was seen in the ICU - doing well. She has some nausea but tolerating liquid diet well. No fever, chills. Physical Exam Vital signs: Vital Signs 05/13/18 16:00 05/13/18 17:00 05/13/18 18:00 Temperature 98.5 F Pulse Rate 104 H 100 H 107 H Respiratory Rate 30 H 19 15 Blood Pressure 146/90 H 145/78 H 162/104 H Pulse Oximetry 98 99 99 05/13/18 19:00 05/13/18 20:00 05/13/18 20:01 Temperature 100 F H Pulse Rate 102 H 107 H 116 H Respiratory Rate 21 33 H 28 H Blood Pressure 139/71 121/73 138/88 Pulse Oximetry 100 100 100 05/13/18 21:00 05/13/18 22:00 05/13/18 23:00 Temperature Pulse Rate 92 H 91 H 96 H Respiratory Rate 16 27 H 17 Blood Pressure 144/81 H 121/73 123/68 Pulse Oximetry 100 98 97 05/14/18 00:00 05/14/18 01:00 05/14/18 02:00 Temperature 99.6 F Pulse Rate 94 H 100 H 97 H Respiratory Rate 21 23 9 L Blood Pressure 123/71 146/85 H 141/75 H Pulse Oximetry 98 99 99 05/14/18 03:00 05/14/18 04:00 05/14/18 05:00 Temperature 99.9 F H Pulse Rate 97 H 93 H 100 H Respiratory Rate 19 20 28 H Blood Pressure 156/85 H 159/91 H 154/84 H Pulse Oximetry 98 99 98 05/14/18 06:00 05/14/18 07:00 05/14/18 08:00 Temperature 98.9 F Pulse Rate 93 H 92 H 87 Respiratory Rate 11 L 22 19 Blood Pressure 168/98 H 146/93 H 152/84 H Pulse Oximetry 100 97 99 05/14/18 09:00 05/14/18 10:00 05/14/18 11:00 Temperature Pulse Rate 87 88 91 H Respiratory Rate 15 20 22 Blood Pressure 170/100 H 121/66 121/67 Pulse Oximetry 98 97 96 05/14/18 12:00 05/14/18 12:01 05/14/18 13:00 Temperature Pulse Rate 104 H 105 H 90 Respiratory Rate 45 H 20 22 Blood Pressure 136/92 H 162/96 H Pulse Oximetry 99 99 98 05/14/18 14:00 Temperature Pulse Rate 88 Respiratory Rate 21 Blood Pressure 168/96 H Pulse Oximetry 99 Intake & Output 05/13/18 05/14/18 05/14/18 18:59 06:59 18:59 Intake Total 3220 / 3220 1480 / 1480 100 / 100 Output Total 1050 / 1050 1120 / 1120 Balance 2170 / 2170 360 / 360 100 / 100 Weight 56.8 kg Intake: IV 2450 / 2450 1000 / 1000 100 / 100 D5W/Normal Saline Inj 1,000 ML 1900 / 1900 @ 200 mls/hr IV.CONT .Q5H [facility] Rx#:[id number] NovoLIN R (IV Infusion) 100 50 / 50 UNIT In NS Inj 99 ML @ 5 UNITS/ HR 5 mls/hr IV.CONT TITRATE PRN Rx#:[id number] NS Inj 1,000 ML @ 84 mls/hr IV. 1000 / 1000 CONT .[id number] [facility] Rx#:[id number] Ofirmev Inj 1,000 mg In 100 ml 100 / 100 @ 400 mls/hr IV.SIG Q6H PRN Rx# :[id number] KCl 20 mEq Premix Inj 20 meq In 400 / 400 100 / 100 100 ml @ 50 mls/hr IV.SIG Q2H PRN Rx#:[id number] Oral 720 / 720 480 / 480 Anesthesia Amount 50 / 50 Output: Urine 750 / 750 1000 / 1000 Emesis 300 / 300 120 / 120 Other: Date of Last Bowel Movement 05/12/18 05/12/18 05/12/18 # Bowel Movements 0 Narrative: GENERAL: NAD, A&Ox3 HEAD: Normocephalic. NECK: Supple, trachea midline. No lymphadenopathy. EYES: No scleral icterus. No injection or drainage. CARDIOVASCULAR: Regular rate and rhythm without murmurs, gallops, or rubs. RESPIRATORY: Breath sounds equal bilaterally. No accessory muscle use. GASTROINTESTINAL: Abdomen soft, non-tender, nondistended. MUSCULOSKELETAL: No cyanosis, or edema. SKIN: Warm and dry. NEURO: No focal neurological deficits. Results - Labs CBC & Chem 7: 05/14/18 04:26 05/14/18 04:26 Laboratory Results - last 24 hr 05/13/18 05/13/18 05/14/18 17:42 20:08 04:26 WBC RBC Hgb Hct MCV MCH MCHC RDW Plt Count MPV Neut % (Auto) Lymph % (Auto) [place] % (Auto) Eos % (Auto) Baso % (Auto) Neut # (Auto) Lymph # (Auto) [place] # (Auto) Eos # (Auto) Baso # (Auto) WBC Differential Differential Comment Sodium 144 Potassium 3.3 L Chloride 109 H Carbon Dioxide 23.2 Anion Gap 12 BUN 15 Creatinine 0.72 Estimated GFR Greater than 89 POC Glucose 272 H 324 H Random Glucose 238 H Calcium 8.3 L Magnesium 1.8 Total Bilirubin 0.4 AST 26 ALT 36 Alkaline Phosphatase 95 Total Protein 7.1 Albumin 3.1 L 05/14/18 05/14/18 05/14/18 04:26 08:36 11:48 WBC 18.9 H RBC 3.60 L Hgb 10.6 L Hct 32.4 L MCV 90.0 MCH 29.5 MCHC 32.8 RDW 13.4 Plt Count 324 MPV 8.3 Neut % (Auto) 89.3 H Lymph % (Auto) 6.4 L [place] % (Auto) 4.1 Eos % (Auto) 0.0 Baso % (Auto) 0.2 Neut # (Auto) 16.8 H Lymph # (Auto) 1.2 [place] # (Auto) 0.8 Eos # (Auto) 0.0 Baso # (Auto) 0.0 WBC Differential . Differential Comment Auto diff final Sodium Potassium Chloride Carbon Dioxide Anion Gap BUN Creatinine Estimated GFR POC Glucose 300 H 218 H Random Glucose Calcium Magnesium Total Bilirubin AST ALT Alkaline Phosphatase Total Protein Albumin Microbiology 05/12/18 04:48 Blood - Peripheral Aerobic Blood Culture - Preliminary No growth in 2 days 05/12/18 04:48 Blood - Peripheral Anaerobic Blood Culture - Preliminary No growth in 2 days 05/12/18 05:01 Blood - Peripheral Aerobic Blood Culture - Preliminary No growth in 2 days 05/12/18 05:01 Blood - Peripheral Anaerobic Blood Culture - Preliminary No growth in 2 days Assessment and Plan - Assessment (1) Diabetic ketoacidosis Code(s): E13.10 - Other specified diabetes mellitus with ketoacidosis without coma Status: Acute (2) Gastroparesis Code(s): K31.84 - Gastroparesis Status: Acute - Plan Ms. Dykes is a 27-year-old female with past medical history of type 1 diabetes mellitus currently using an insulin pump and gastroparesis who states that overnight she developed nausea and vomiting. She was admitted to ICU for DKA. She was found to be in DKA with glucose of 785, bicarb 19, anion gap 20, beta hydroxybutyrate of 6.32. Her DKA resolved and subsequently, she was transferred to the floor under hospitalist service. Acute diabetic ketoacidosis Gastroparesis -Currently on Sliding scale insulin and Levemir 12 units QHS. -Continue Reglan 10mg IV Q6hrs. Once N/V is improved, we will try to switch to PO meds. -Zofran, Compazine, Phenergan for N/V Hypertension - Patient is Diabetic. We will start her on Losartan 50mg Qday. Leukocytosis - WBC 19.5 --> 18.9. - CXR unremarkable. UA unremarkable. Blood cx negative. Mild Hypokalemia - K+ was 3.3. Received IV KCL - Will repeat BMP in the AM. Full code. Will start Lovenox for DVT prophylaxis.
[2018-05-14] MEDS ORDERED: Enoxaparin Inj 40 MG/0.4 ML Syringe SQ SCH (16:00)
--- NOTE | 2018-05-14 16:23 | P.PNGI ---
Subjective Interval history: Continues with mild nausea but no vomiting. Physical Exam Vital signs: Vital Signs 05/13/18 17:00 05/13/18 18:00 05/13/18 19:00 Temperature Pulse Rate 100 H 107 H 102 H Respiratory Rate 19 15 21 Blood Pressure 145/78 H 162/104 H 139/71 Pulse Oximetry 99 99 100 05/13/18 20:00 05/13/18 20:01 05/13/18 21:00 Temperature 100 F H Pulse Rate 107 H 116 H 92 H Respiratory Rate 33 H 28 H 16 Blood Pressure 121/73 138/88 144/81 H Pulse Oximetry 100 100 100 05/13/18 22:00 05/13/18 23:00 05/14/18 00:00 Temperature 99.6 F Pulse Rate 91 H 96 H 94 H Respiratory Rate 27 H 17 21 Blood Pressure 121/73 123/68 123/71 Pulse Oximetry 98 97 98 05/14/18 01:00 05/14/18 02:00 05/14/18 03:00 Temperature Pulse Rate 100 H 97 H 97 H Respiratory Rate 23 9 L 19 Blood Pressure 146/85 H 141/75 H 156/85 H Pulse Oximetry 99 99 98 05/14/18 04:00 05/14/18 05:00 05/14/18 06:00 Temperature 99.9 F H Pulse Rate 93 H 100 H 93 H Respiratory Rate 20 28 H 11 L Blood Pressure 159/91 H 154/84 H 168/98 H Pulse Oximetry 99 98 100 05/14/18 07:00 05/14/18 08:00 05/14/18 09:00 Temperature 98.9 F Pulse Rate 92 H 87 87 Respiratory Rate 22 19 15 Blood Pressure 146/93 H 152/84 H 170/100 H Pulse Oximetry 97 99 98 05/14/18 10:00 05/14/18 11:00 05/14/18 12:00 Temperature Pulse Rate 88 91 H 104 H Respiratory Rate 20 22 45 H Blood Pressure 121/66 121/67 Pulse Oximetry 97 96 99 05/14/18 12:01 05/14/18 13:00 05/14/18 14:00 Temperature Pulse Rate 105 H 90 88 Respiratory Rate 20 22 21 Blood Pressure 136/92 H 162/96 H 168/96 H Pulse Oximetry 99 98 99 Intake & Output 05/13/18 05/14/18 05/14/18 18:59 06:59 18:59 Intake Total 3220 / 3220 1480 / 1480 100 / 100 Output Total 1050 / 1050 1120 / 1120 Balance 2170 / 2170 360 / 360 100 / 100 Weight 56.8 kg Intake: IV 2450 / 2450 1000 / 1000 100 / 100 D5W/Normal Saline Inj 1,000 ML 1900 / 1900 @ 200 mls/hr IV.CONT .Q5H [facility] Rx#:[id number] NovoLIN R (IV Infusion) 100 50 / 50 UNIT In NS Inj 99 ML @ 5 UNITS/ HR 5 mls/hr IV.CONT TITRATE PRN Rx#:[id number] NS Inj 1,000 ML @ 84 mls/hr IV. 1000 / 1000 CONT .[id number] [facility] Rx#:[id number] Ofirmev Inj 1,000 mg In 100 ml 100 / 100 @ 400 mls/hr IV.SIG Q6H PRN Rx# :[id number] KCl 20 mEq Premix Inj 20 meq In 400 / 400 100 / 100 100 ml @ 50 mls/hr IV.SIG Q2H PRN Rx#:[id number] Oral 720 / 720 480 / 480 Anesthesia Amount 50 / 50 Output: Urine 750 / 750 1000 / 1000 Emesis 300 / 300 120 / 120 Other: Date of Last Bowel Movement 05/12/18 05/12/18 05/12/18 # Bowel Movements 0 - Constitutional mild distress, cooperative - Routine HEENT Exam Head: Present: normocephalic ENT: Present: mucous membranes moist - Routine Neck Exam Present: supple - Routine Respiratory Exam Present: accessory muscle use (No shortness of breath) - Routine Cardiovascular Exam Present: S1, S2 - Routine Abdominal Exam Present: soft (Nausea but no vomiting, abdomen round), normoactive bowel sounds Results - Labs CBC & Chem 7: 05/14/18 04:26 05/15/18 04:30 Laboratory Results - last 24 hr 05/13/18 05/13/18 05/14/18 17:42 20:08 04:26 WBC RBC Hgb Hct MCV MCH MCHC RDW Plt Count MPV Neut % (Auto) Lymph % (Auto) [place] % (Auto) Eos % (Auto) Baso % (Auto) Neut # (Auto) Lymph # (Auto) [place] # (Auto) Eos # (Auto) Baso # (Auto) WBC Differential Differential Comment Sodium 144 Potassium 3.3 L Chloride 109 H Carbon Dioxide 23.2 Anion Gap 12 BUN 15 Creatinine 0.72 Estimated GFR Greater than 89 POC Glucose 272 H 324 H Random Glucose 238 H Calcium 8.3 L Magnesium 1.8 Total Bilirubin 0.4 AST 26 ALT 36 Alkaline Phosphatase 95 Total Protein 7.1 Albumin 3.1 L 05/14/18 05/14/18 05/14/18 04:26 08:36 11:48 WBC 18.9 H RBC 3.60 L Hgb 10.6 L Hct 32.4 L MCV 90.0 MCH 29.5 MCHC 32.8 RDW 13.4 Plt Count 324 MPV 8.3 Neut % (Auto) 89.3 H Lymph % (Auto) 6.4 L [place] % (Auto) 4.1 Eos % (Auto) 0.0 Baso % (Auto) 0.2 Neut # (Auto) 16.8 H Lymph # (Auto) 1.2 [place] # (Auto) 0.8 Eos # (Auto) 0.0 Baso # (Auto) 0.0 WBC Differential . Differential Comment Auto diff final Sodium Potassium Chloride Carbon Dioxide Anion Gap BUN Creatinine Estimated GFR POC Glucose 300 H 218 H Random Glucose Calcium Magnesium Total Bilirubin AST ALT Alkaline Phosphatase Total Protein Albumin Microbiology 05/12/18 04:48 Blood - Peripheral Aerobic Blood Culture - Preliminary No growth in 2 days 05/12/18 04:48 Blood - Peripheral Anaerobic Blood Culture - Preliminary No growth in 2 days 05/12/18 05:01 Blood - Peripheral Aerobic Blood Culture - Preliminary No growth in 2 days 05/12/18 05:01 Blood - Peripheral Anaerobic Blood Culture - Preliminary No growth in 2 days Assessment and Plan (1) Nausea and vomiting due to hyperglycemia Status: Acute Code(s): R11.2 - Nausea with vomiting, unspecified; R73.9 - Hyperglycemia, unspecified (2) Gastroparesis Status: Acute Code(s): K31.84 - Gastroparesis - Plan (1) Nausea and vomiting due to hyperglycemia Status: Acute Code(s): R11.2 - Nausea with vomiting, unspecified; R73.9 - Hyperglycemia, unspecified (2) Gastroparesis Status: Acute Code(s): K31.84 - Gastroparesis - Plan This patient is a 27-year-old female with past medical history significant for type 1 diabetes. Patient currently has an insulin pump and has history of gastroparesis. She reports onset of severe nausea and vomiting at midnight last night. At home she checked her blood glucose level and found it to be high , at that time she proceeded to [facility] emergency room. Patient was found to be in DKA with a glucose of 785. She reports having abdominal cramping and pain. Denies any diarrhea or constipation states bowel movements are regular soft brown stools daily. Reports nausea nausea and vomiting consisting of clear emesis. Patient denies any fever or chills. Patient states that she has had a history of gastroparesis for about 6 years. Patient denies being on any prokinetics and states that gastroparesis has been controlled for the last 2 years without prescription medications. Last gastric emptying study was done "years ago". Last EGD per patient recollection was done and estimated 2 years ago in [place]-where patient lives. Patient denies ever having had a colonoscopy. She denies tobacco use or use of alcohol products. Nausea vomiting-likely due to to DKA Patient reporting nausea and vomiting onset midnight. Patient reports emesis clear. Patient found to be in DKA with glucose of 785 on arrival to ER. Zofran 4 mg IV every 6 hours as needed nausea. CT abdomen and pelvis unremarkable without noted dilated loops of bowel. Gastroparesis-likely due to diabetes mellitus Patient reporting history of gastroparesis for 6 years. States controlled over the last 2 years and denies being on any prescription medications for same. Reglan 5 mg IV every 8 hours. May need additional gastric emptying study at some point. 05/14/2018 patient is status post EGD 05/13/2018 which showed class D gastritis and esophagitis. Biopsies are pending will need repeat EGD Food residue was noted in the stomach. Continues with mild nausea but no vomiting. Tolerating clear liquids will increase to full liquids ADA, encourage patient for reflux precautions slow eating and meals should be small 4-6 times a day to assist controlling her gastroparesis symptoms Leukocytosis mild probably stress related trending back down Plan Diet increase to full liquids, 4-6 times a day slow eating Reflux precautions with slow eating gastroparesis meals 4-6 times a day Reglan, Zofran Bowel regimen Supportive care Patient was seen per myself and Dr. White, note was written on his behalf
[2018-05-14] MEDS ORDERED: Insulin Detemir Inj 1,000 UNIT/10 ML Vial SQ SCH (21:00)
[2018-05-15] MEDS: Sod Chloride 0.9% Inj 1,000 ML IV.CONT SCH (00:40)
[2018-05-15 05:57] LABS: Anion Gap 8 meq/L (5-15); Blood Urea Nitrogen 18 mg/dL (7-18); Calcium 8.1 mg/dL (8.5-10.1); Carbon Dioxide 27.7 meq/L (21.0-32.0); Chloride 103 meq/L (98-107); Glomerular Filtration Rate Greater Than 89 mL/min (>89); Glucose,Random 166 mg/dL (74-106); Potassium 3.1 meq/L (3.5-5.1); Sodium 139 meq/L (136-145)
[2018-05-15 06:11] VITALS: TEMP 98.5
[2018-05-15] MEDS: Insulin NovoLOG Aspart Correctional Sugar Inj SQ SCH (08:37)
[2018-05-15] MEDS: Sodium Chloride 0.9% 2 ML Flush BID IV.FLUSH SCH (08:38)
[2018-05-15 09:13] VITALS: RESP 17; O2SAT 97
[2018-05-15] MEDS: Heparin - SQ 10,000 UNITS/ML Vial SQ SCH (10:32)
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
[2018-05-15 11:03] VITALS: BP 158/90; PULSE 78
== END 2018-05-15 11:10 | disposition home or self-care (01) ==
LOC: NEPC 03:18 → NEDA 04:52 → HIMC 06:10 → N06 05-14 15:02
PROVIDERS: ADMIT Hospitalist; ATTEND Hospitalist